=== PATIENT | female | born 1945 | race Caucasian/White ===

== ENCOUNTER → 2024-07-07 08:22 | Outpatient (BNVA) | payer MEDICARE, SELFPAY | PROVIDERS: PCP Family Medicine; Referring Provider Family Medicine; Visit Provider Internal Medicine | DX: E07.9 Disorder of thyroid, unspecified (principal); M54.2 Cervicalgia; E04.2 Nontoxic multinodular goiter | CPT/HCPCS: 36415; 84439; 84443; 99204 ==

== ENCOUNTER 2024-08-12 11:39 | Outpatient (CLI) | payer MEDICARE, SELFPAY ==
--- NOTE | 2024-08-12 11:45 | US_ITS ---
WS: [id number] ULTRASOUND THYROID TECHNIQUE: Ultrasound of the thyroid. CLINICAL INFORMATION: thyroid nodules COMPARISON: 03/16/2024 FINDINGS: Thyroid: Right and left thyroid lobes are normal in size and echotexture. Again seen are multiple dominik ateral complex and solid thyroid nodules. Incidental bilateral tiny subcentimeter colloid cyst. Largest right-sided complex nodule measuring 8 x 8 x 15 mm in the superior RIGHT thyroid this is unch anged compared to previous. Complex cystic and solid nodule LEFT mid thyroid measuring 8 x 8 x 11 mm also unchanged in appearance . Right thyroid lobe: 4.2 cm x 1.6 cm x 1.3 cm Left thyroid lobe: 4.3 cm x 1.3 cm x 1.1 cm. Isthmus: 0.1 mm. Cervical lymphadenopathy: None. US/US thyroid [id number] IMPRESSION: 1. No significant changes compared to previous. 2. Complex nodule 8 x 8 x 15 mm in the superior RIGHT thyroid TIRADS Category 2: Not suspicious (total points = 2) No FNA 3. Complex cystic and solid nodule LEFT mid thyroid measuring 8 x 8 x 11 mm TIRADS Category 2: Not suspicious (total points = 2) No FNA
== END 2024-08-12 11:40 | disposition home or self-care (01) ==
LOC: RAD 11:40
PROVIDERS: PCP Family Medicine; Visit Provider Internal Medicine
DX: E04.2 Nontoxic multinodular goiter (principal); E07.9 Disorder of thyroid, unspecified
CPT/HCPCS: 76536

== ENCOUNTER → 2025-04-03 07:59 | Outpatient (BNVA) | payer MEDICARE, SELFPAY | PROVIDERS: PCP Family Medicine; Visit Provider Internal Medicine | DX: E04.2 Nontoxic multinodular goiter (principal); E07.9 Disorder of thyroid, unspecified; M54.2 Cervicalgia | CPT/HCPCS: 99214 ==

== ENCOUNTER → 2025-04-12 07:52 | Outpatient (BNVA) | payer MEDICARE, SELFPAY | PROVIDERS: PCP Family Medicine; Visit Provider Nurse Practitioner Family | DX: L21.8 Other seborrheic dermatitis (principal); L82.0 Inflamed seborrheic keratosis; L29.89 Other pruritus; R20.9 Unspecified disturbances of skin sensation; R20.8 Other disturbances of skin sensation; L53.8 Other specified erythematous conditions; L57.0 Actinic keratosis | CPT/HCPCS: 17000; 17110; 99204 ==

== ENCOUNTER 2025-08-02 07:46 | Outpatient (CLI) | payer MEDICARE, SELFPAY ==
--- NOTE | 2025-08-02 08:00 | US_ITS ---
WS: [id number] THYROID ULTRASOUND REASON FOR EXAM: see below TECHNIQUE: Grayscale and Doppler ultrasound examination of the thyroid gland. FINDINGS: RIGHT: Right thyroid gland measures 4.6 cm x 1.5 cm x 1.1 cm. Right thyroid volume equals 3.5 ccm3. Moderately heterogeneous echotexture. Multiple small sharply circumscribed sonolucencies with small focal linear echogenicities. 2 dominant nodules measured. The first is a well-defined sonolucent ovoid nodule with small foci of mural echogenicity. Dimensions are 4 mm x 8 mm x 8 mm. The second nodule is a sharply circumscribed sonolucency with multiple mural echogenic foci and a central portion of inhomogeneous echogenicity. The dimensions are 10 mm x 5 mm x 11 mm. These nodules are in the superior aspect of the right thyroid lobe. LEFT: Left thyroid gland measures 4.1 cm x 1.0 cm x 1.3 cm. Left thyroid volume equals 2.6 ccm3. Moderately heterogeneous echotexture. Multiple small sharply circumscribed sonolucencies with small focal linear echogenicities. Fewer in number than the right lobe of the thyroid. One dominant nodule measured. Sharply circumscribed sonolucency with linear and focal mural echogenicity. Dimensions are 7 mm x 4 mm x 9 mm. Nodule is in the mid left lobe of the thyroid. Thyroid isthmus: 0.2 mm. Heterogeneous echogenicity with no focal lesion. US/US thyroid [id number] IMPRESSION: Multinodular goiter. TR2
== END 2025-08-02 07:47 | disposition home or self-care (01) ==
LOC: RAD 07:52
PROVIDERS: Absent Provider Internal Medicine; PCP Family Medicine; Referring Provider Internal Medicine; Visit Provider Family Medicine
DX: E04.2 Nontoxic multinodular goiter (principal); M54.2 Cervicalgia
CPT/HCPCS: 76536

== ENCOUNTER → 2025-08-07 09:33 | Outpatient (BNVA) | payer MEDICARE, SELFPAY | PROVIDERS: PCP Family Medicine; Visit Provider Internal Medicine | DX: E07.9 Disorder of thyroid, unspecified (principal); M54.2 Cervicalgia; E04.2 Nontoxic multinodular goiter | CPT/HCPCS: 99214 ==